=== PATIENT | female | born 1990 | race African-American/Black ===

== ENCOUNTER 2019-01-19 14:21 | Emergency (ER) | payer SELFPAY ==
[~2019-01-19] VITALS: Ht 157.5 cm; Wt 65.8 kg
[2019-01-19 14:37] VITALS: BP 121/58
[2019-01-19] MEDS ORDERED: ACETAMINOPHEN 500 MG TABLET PO STA (15:35)
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
== END 2019-01-19 17:15 | disposition home or self-care (01) ==
LOC: ER 14:21
DX: S80.01XA Contusion of right knee, initial encounter (principal); S00.33XA Contusion of nose, initial encounter; S00.83XA Contusion of other part of head, initial encounter; R51 Headache; M25.561 Pain in right knee; Z88.5 Allergy status to narcotic agent; Y08.89XA Assault by other specified means, initial encounter; Y93.89 Activity, other specified; Y92.89 Other specified places as the place of occurrence of the external cause; Y99.8 Other external cause status
CPT/HCPCS: 70450; 70486; 72125; 73562; 99284